=== PATIENT | male | born 1975 | race Caucasian/White ===

== ENCOUNTER 2021-12-10 16:56 | Emergency (ER) | payer OTHER, SELFPAY ==
--- NOTE | ~2021-12-10 | XR_ITS ---
EXAMINATION: XR wrist LT min 3V DATE: 12/10/2021 17:48 INDICATION: Left wrist pain TECHNIQUE: Posteroanterior, ulnar deviation, oblique, and lateral views of the left wrist were obtain ed. COMPARISON: None available FINDINGS: There is no fracture, dislocation, or subluxation. The bones, soft tissues, and joint space s are normal. IMPRESSION: 1. No acute osseous abnormality. Reviewed, dictated and finalized at location F. ER [employer]
[2021-12-10 17:05] VITALS: BP 122/77; PULSE 72; RESP 18; TEMP 36.8; O2SAT 100
--- NOTE | 2021-12-10 17:14 | ED.UPPEXIN ---
HPI - Extremity Injury (Upper) General Chief Complaint: Extremity Injury, Upper Stated Complaint: Fall Injury/Left Wrist Time Seen by Provider: 12/10/21 17:14 Source: patient and RN notes reviewed History of Present Illness HPI narrative: Patient is a 46-year-old male who presents the urgent care with complaints of left wrist injury. Patient states that he fell out of bed on Friday and he has been icing and wrapping the wrist since then. Patient states that he has been able to move it around but he is having severe pain on the inside of the left wrist. Patient denies of any other acute complaints or injuries. Patient has not taken anything [id number] for his pain. No other acute complaints. No acute distress noted. Patient aware of the plan of care. Some parts of this dictation were generated by voice recognition software and may contain typographical and/or grammatical inaccuracies. Review of Systems Review of Systems: CONSTITUTIONAL: Denies fever, chills, or sweats. EYES: Denies visual changes, redness, or discharge. ENT: Denies rhinorrhea, congestion, sore throat, or otalgia. CARDIOVASCULAR: Denies chest pain, palpitations, or edema. RESPIRATORY: Denies cough or dyspnea. GASTROINTESTINAL: Denies abdominal pain, nausea, vomiting, or diarrhea. GENITOURINARY: Denies dysuria or hematuria. SKIN: Denies rash or itching. MUSCULOSKELETAL: Reports of left wrist pain NEUROLOGIC: Denies headache, numbness, or weakness. All other systems reviewed are negative, except as documented in HPI. PMFSH Comments At the time of my signature, I reviewed and agree with the nursing past medical, surgical, social, and family history. There is no relevant family history pertinent to the patient complaint. Exam Narrative: GENERAL: This is a well-nourished, well-developed patient, in no apparent distress. HEAD: normocephalic, atraumatic. EYES: PERRL. Sclera clear/white. Vision is grossly intact. EARS: External ears normal NOSE: External nose normal with no obvious nasal discharge, nares without redness, no rhinorrhea. THROAT: Mucous membranes moist NECK: Neck supple CARDIOVASCULAR: Regular rate and rhythm SKIN: warm, intact with no suspicious lesions or rash, good texture and turgor. NEURO: awake, alert, and oriented to person, place and time. There were no obvious focal neurologic abnormalities. EXTREMITIES: No obvious injury or deformity noted to the left upper extremity. Range of motion within normal limits without any exacerbated notable pain. Positive strong left radial pulse with capillary refill less than 2 seconds. Course Course Level of Care: Express Care Visit Vital Signs Vital signs: Vital Signs Temperature 98.3 F 12/10/21 17:05 Pulse Rate 72 12/10/21 17:05 Respiratory Rate 18 12/10/21 17:05 Blood Pressure 122/77 12/10/21 17:05 Pulse Oximetry 100 12/10/21 17:05 Temperature 98.3 F 12/10/21 17:05 Pulse Rate 72 12/10/21 17:05 Respiratory Rate 18 12/10/21 17:05 Blood Pressure 122/77 12/10/21 17:05 Pulse Oximetry 100 12/10/21 17:05 Reviewed MDM - Extremity Injury (Upper) MDM Narrative Medical decision making narrative: Reviewed x-ray results with the patient. He is aware that x-ray was negative for fracture or deformity. Advised the patient to continue wearing the store-bought brace and use Tylenol/ibuprofen as needed for pain. Avoid any strenuous activity that involves pushing/pulling or lifting above the head. Follow-up with your PCP within 2 to 5 days or for worsening symptoms or failure to improve. Differential Diagnosis Differential diagnosis: Likely sprain and strain of wrist, fracture of wrist and finger sprain Imaging Data Radiologist's impression: [facility] [id number], [place] [id number] XRay ReportSigned Patient: Chris Perdomo wDOB: 1975MR#: [id number]/Sex: 46 / MAcct:[id number]: EXPBETH ADM Date: 12/10/21Attending Dr: Ordering Physician:
== END 2021-12-10 18:08 | disposition home or self-care (01) ==
PROVIDERS: Emergency Provider Nurse Practitioner Family; PCP Family Medicine
DX: S63.502A Unspecified sprain of left wrist, initial encounter (principal); S66.912A Strain of unspecified muscle, fascia and tendon at wrist and hand level, left hand, initial encounter; W06.XXXA Fall from bed, initial encounter; K21.9 Gastro-esophageal reflux disease without esophagitis; I10 Essential (primary) hypertension
CPT/HCPCS: 73110; 99213; G0463